=== PATIENT | male | born 1985 | race Caucasian/White ===

== ENCOUNTER 2017-02-28 15:02 | Emergency (ER) | payer OTHER ==
[~2017-02-28] VITALS: Ht 180.3 cm; Wt 83.9 kg
--- NOTE | ~2017-02-28 | CR127 ---
[facility] A Service of [facility] & [facility] RADIOLOGY TEXT RESULTS PATIENT: RAMONA LE LOCATION: [place] : 81 UNIT #: [id number] AGE: [address]: Simona Howell APRN SEX: M ORDER DR: [id number] [facility] [address] [place], [place] [address] [id number] E MR#: [id number] Acc #: [id number] NAME: RAMONA LE : 1985 SEX: M STUDY DATE/TIME: 02/28/2017 15:25 UNIT: [facility] ROOM: STUDY DESCRIPTION: CR Foot Complete Min 3 View Rt Attending Physician: Simona Howell A.P.R.N. Ordering Physician: Simona Howell A.P.R.N. Primary Care Physician: Primary Care Physician No MEDICAL IMAGING REPORT This report is preliminary unless electronic signature is present EXAM Right foot INDICATIONS Right foot pain for 3 days. Fell. FINDINGS There is a vertical cleft in the base of the proximal phalanx, fifth digit. This appears to be well corticated, however is indeterminate for a fracture. Please correlate with point tenderness over the fifth digit. Otherwise, there is no fracture or dislocation. No foreign body. IMPRESSION 1. There is a lucency through the base of the proximal phalanx, fifth digit. This appears well corticated and I am unsure if this represents an acute finding or not. If the patient does have point tenderness at the base of the fifth digit, then this would represent a nondisplaced fracture. Dictated by... Juan Esparza M.D. THIS IS AN ELECTRONICALLY VERIFIED REPORT Juan Esparza M.D. at 03/01/2017 8:10 AM RPC/afia TD: 03/01/2017 01:32 JOB #: [id number] MEDICAL IMAGING REPORT Page 1 of 1 COPY
== END 2017-02-28 17:10 | disposition home or self-care (01) ==
LOC: CED 15:02 → CFTX 15:02
DX: S92.514A Nondisplaced fracture of proximal phalanx of right lesser toe(s), initial encounter for closed fracture (principal); F17.210 Nicotine dependence, cigarettes, uncomplicated; Z87.442 Personal history of urinary calculi; X58.XXXA Exposure to other specified factors, initial encounter; Y92.009 Unspecified place in unspecified non-institutional (private) residence as the place of occurrence of the external cause
CPT/HCPCS: 29550; 73630; 99283